=== PATIENT | female | born 1970 ===

== ENCOUNTER 2019-09-12 22:01 | Emergency (ER) | payer OTHER ==
[2019-09-12 22:10] VITALS: BP 111/68; PULSE 88; TEMP 98; BMI 28.2
--- NOTE | 2019-09-13 04:54 | PDOC ---
Documentation entered by Patricia Wakefield SCRIBE, acting as scribe for Erin Valencia MD. Erin Valencia MD: This documentation has been prepared by the kaelyneAshu Aiswarya, SCRIBE, under my direction and personally reviewed by me in its entirety. I confirm that the documentation accurately reflects all work, treatment, procedures, and medical decision making performed by me. History of Present Illness - General Chief Complaint: Injury Stated Complaint: SLIPPED IN BR, HIT HEAD AND BACK Time Seen by Provider: 09/12/19 22:03 History Source: Patient Exam Limitations: No Limitations - History of Present Illness Initial Comments: 09/12/19 23:20 The patient is a 48 year old female, with no significant PMH, who presents to the emergency department for evaluation of a fall that occurred at 3 pm today. 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 The patient states she fell on her left side hitting her head. She currently endorses associated symptoms of headache, left sided neck pain, lightheadedness, nausea, and lower back pain. Patient states pain is exacerbated when walking and alleviated when sitting, mild relief with Advil. Patient denies LOC, vision changes, numbness or tingling. Denies chest pain and shortness of breath.Denies fever, chills, nausea, vomit, diarrhea and constipation. Allergies: NKDA Past surgical history: None reported Social history: None reported PCP: None reported Past History - Past Medical History Allergies/Adverse Reactions: Allergies Allergy/AdvReac Type Severity Reaction Status Date / Time No Known Allergies Allergy Verified 09/12/19 22:04 Home Medications: Ambulatory Orders Diclofenac Sodium 75 mg PO BID PRN #12 tablet. 09/12/19 COPD: No Other medical history: DENIES - Psycho Social/Smoking Cessation Hx Smoking History: Never smoked Have you smoked in the past 12 months: No Information on smoking cessation initiated: No Hx Alcohol Use: No Drug/Substance Use Hx: No Review of Systems - Review of Systems Able to Perform ROS?: Yes Comments:: 09/12/19 23:13 GENERAL/CONSTITUTIONAL: No fever or chills. No weakness. HEAD, EYES, EARS, NOSE AND THROAT: No change in vision. No ear pain or discharge. No sore throat. CARDIOVASCULAR: No chest pain or shortness of breath. RESPIRATORY: No cough, wheezing, or hemoptysis. GASTROINTESTINAL: +nausea. No vomiting, diarrhea or constipation. GENITOURINARY: No dysuria, frequency, or change in urination. MUSCULOSKELETAL: +neck pain and back pain. No joint or muscle swelling or pain. SKIN: No rash NEUROLOGIC:+headache. No vertigo, loss of consciousness, or change in strength/ sensation. ENDOCRINE: No increased thirst. No abnormal weight change. HEMATOLOGIC/LYMPHATIC: No anemia, easy bleeding, or history of blood clots. ALLERGIC/IMMUNOLOGIC: No hives or skin allergy. *Physical Exam - Vital Signs Last Vital Signs Temp Pulse Resp BP Pulse Ox 98 F 88 16 111/68 98 09/12/19 22:06 09/12/19 22:06 09/12/19 22:06 09/12/19 22:06 09/12/19 22:06 - Physical Exam Comments: 09/12/19 23:13 GENERAL: Awake, alert, and fully oriented, in no acute distress HEAD: +mild edema and tenderness left parietal scalp. EYES: PERRLA, EOMI, sclera anicteric, conjunctiva clear ENT: Auricles normal inspection, hearing grossly normal, nares patent, oropharynx clear without exudates. Moist mucosa NECK: +Notable mild tenderness to the midline on palpation located to the C3-C5. LUNGS: Breath sounds equal, clear to auscultation bilaterally. No wheezes, and no crackles HEART: Regular rate and rhythm, normal S1 and S2, no murmurs, rubs or gallops ABDOMEN: Soft, nontender, normoactive bowel sounds. No guarding, no rebound. No masses EXTREMITIES:+Mild tenderness to the left sacral and iliac spine. No direct pain rocking of the pelvis. NEUROLOGICAL: Cranial nerves II through XII grossly intact. Normal speech, normal gait SKIN: Warm, Dry, normal turgor, no rashes or lesions noted. ED Progress Note - Progress Note Progress Note: As noted above, this otherwise healthy 48-year-old woman presents with a history of slipping and falling while at work, striking left side of her head/ left side of her neck and lower back against a wall (oily substance was on floor ). No LOC but patient has had a headache since the fall as well as intermittent lightheadedness/nausea. She also complaining of pain in the left side of her neck and in the left lower back area. Exam as noted. Noncontrast head CT performed to evaluate for acute intracranial pathology/ skull fracture in light of patient's persistent symptoms since the fall. Also, plain film of the cervical spine was also taken. Head CT interpreted by Dr. Gerardo of the radiology staff: No evidence of fracture or acute intracranial pathology. C-spine x-ray (preliminary interpretation by me) shows straightening of lordotic curve but otherwise no evidence of fracture or dislocation Results discussed with the patient. Patient should keep her head elevated and avoid strenuous activity (including her work) for the next several days. Documentation for work provided for the patient. Diclofenac 75 mg twice a day can be taken as needed for pain (take with food Soft cervical collar provided for the patient; she can use this as needed for relief of neck pain. She should return here she has severe pain or develops severe headache/vomiting. She should plan on following up with her general doctor within the next 2 to 3 days Discharge - Discharge Information Problems reviewed: Yes Clinical Impression/Diagnosis: Closed head injury Qualifiers: Encounter type: initial encounter Qualified Code(s): S09.90XA - Unspecified injury of head, initial encounter Cervical strain Qualifiers: Encounter type: initial encounter Qualified Code(s): S16.1XXA - Strain of muscle, fascia and tendon at neck level, initial encounter Pelvic contusion Qualifiers: Encounter type: initial encounter Qualified Code(s): S30.0XXA - Contusion of lower back and pelvis, initial encounter Condition: Stable Disposition: HOME - Additional Discharge Information Prescriptions: Diclofenac Sodium 75 mg PO BID PRN #[id number] [email or web address] Reason: Moderate Pain - Follow up/Referral - Patient Discharge Instructions Patient Printed Discharge Instructions: DI for Cervical Muscle Strain Additional Instructions: Elevate head tonight; use soft collar as needed Avoid strenuous activity for several days No work until September 18 Diclofenac 75 mg twice a day as needed for pain Return if you have severe pain or develop persistent nausea/somnolence Follow-up with your doctor within the next 2 to 3 days - Post Discharge Activity Work/Back to School Note: Back to Work
== END 2019-09-12 23:55 | disposition home or self-care (01) ==
LOC: FER 22:01
DX: S09.90XA Unspecified injury of head, initial encounter (principal); S16.1XXA Strain of muscle, fascia and tendon at neck level, initial encounter; S30.0XXA Contusion of lower back and pelvis, initial encounter; W01.0XXA Fall on same level from slipping, tripping and stumbling without subsequent striking against object, initial encounter; Y93.E5 Activity, floor mopping and cleaning; Y92.59 Other trade areas as the place of occurrence of the external cause; Y99.0 Civilian activity done for income or pay
CPT/HCPCS: 70450-TC; 72050-TC-FY; 99281-25